=== PATIENT | male | born 1985 | race Caucasian/White ===

== ENCOUNTER 2019-06-21 15:01 | Emergency (ER) | payer OTHER ==
--- NOTE | 2019-06-21 17:54 | RADIOLOGY REPORT (SQ) ---
EXAM DESCRIPTION: CT SOFT TISSUE NECK WITH COMPLETED DATE/TIME: 06/21/2019 5:13 pm REASON FOR STUDY: diff swallowing, sensation of swelling in airway COMPARISON: None. TECHNIQUE: Post IV contrasted scanning from skull base through lung apices with review of bone, soft tissue and lung windows. Reconstructed coronal and sagittal MPR images reviewed. All images stored on PACS. All CT scanners at this facility use dose modulation, iterative reconstruction, and/or weight based d osing when appropriate to reduce radiation dose to as low as reasonably achievable (ALARA). [facility]: Dose Right [facility]: CareDose [facility]: Dose Right [facility]: Teradose 4D [facility]: CyberVision Text CONTRAST TYPE AND DOSE: contrast/concentration: Isovue 350.00 mg/ml; Total Contrast Delivered: 75.0 ml; Total Saline Delivered: 55.0 ml RENAL FUNCTION: Testing waived by the emergency room physician. RADIATION DOSE: CT Rad equipment meets quality standard of care and radiation dose reduction techniq ues were employed. CTDIvol: 16.1 mGy. DLP: 541 mGy-cm. . LIMITATIONS: None. FINDINGS: SKULL BASE: Intact. MAJOR SALIVARY GLANDS: No solid or cystic masses. No inflammatory changes. LYMPHADENOPATHY: No adenopathy. MUCOSAL MASSES OR ASYMMETRY: No mucosal masses or asymmetry. LARYNX/CORDS: No abnormal findings. VASCULAR STRUCTURES: The major vessels are patent. LUNG APICES: Clear. BONES: Intact. THYROID: Normal size. No masses. PARANASAL SINUSES: Clear. OTHER: No other significant finding. IMPRESSION: NO SIGNIFICANT FINDING IN THE SOFT TISSUES OF THE NECK. TECHNICAL DOCUMENTATION: JOB ID: [id number] Quality ID # [id number]: Final reports with documentation of one or more dose reduction techniques (e.g., Au tomated exposure control, adjustment of the mA and/or kV according to patient size, use of iterative reconstruction technique) 2010 [employer]- All Rights Reserved Reading location - IP/workstation name: [email or web address]
[2019-06-21] MEDS ORDERED: DEXAMETHASONE SOD PHOS INJ 10 MG/1 ML VIAL IM ONE (18:35)
[2019-06-21] MEDS ORDERED: KETOROLAC TROMETHAMINE 60 MG/2 ML SDV IM ONE (18:35)
--- NOTE | 2019-06-21 18:56 | ER Document Report ---
HPI - HPI Time Seen by Provider: 06/21/19 15:58 Pain Level: 1 Notes: Patient is an otherwise healthy 33-year-old male presenting with 2-week history of pain in his neck. Patient reports it feels like his airway is swollen and he states he has a hard time swallowing and a sensation of difficulty breathing. Patient states he has had strep throat in the past and states this does not feel the same. He denies any other symptoms current to include fever, nausea, vomit ing, cough, congestion. He has not taken any medications for symptoms. He states that last night he was only able to spit into a bag. At the time of my evaluation patient is alert, oriented, swallowing his own saliva and able to speak in complete sentences without difficulty. Past Medical History - General Information source: Patient - Social History Smoking Status: Never Smoker Family History: Reviewed & Not Pertinent - Past Medical History Cardiac Medical History: Reports: Hx Hypertension Vertical Provider Document - CONSTITUTIONAL Notes: PHYSICAL EXAMINATION: GENERAL: Well-appearing, well-nourished and in no acute distress. HEAD: Atraumatic, normocephalic. EYES: Pupils equal round and reactive to light, extraocular movements intact, sclera anicteric, conjunctiva are normal. ENT: Nares patent, oropharynx clear without exudates. Moist mucous membranes. NECK: Normal range of motion, supple without lymphadenopathy LUNGS: Breath sounds clear to auscultation bilaterally and equal. No wheezes rales or rhonchi. HEART: Regular rate and rhythm without murmurs ABDOMEN: Soft, nontender, nondistended abdomen. No guarding, no rebound. No m asses appreciated. Musculoskeletal: Normal range of motion, no pitting or edema. No cyanosis. NEUROLOGICAL: Cranial nerves grossly intact. Normal speech, normal gait. Normal sensory, motor exams PSYCH: Normal mood, normal affect. SKIN: Warm, Dry, normal turgor, no rashes or lesions noted. - INFECTION CONTROL TRAVEL OUTSIDE OF THE [place] IN LAST 30 DAYS: No COUNTRY TRAVELED TO/FROM: [place] Course - Re-evaluation Re-evalutation: Patient appears well, nontoxic and is speaking in full and complete sentences. He is airway appears patent, he is speaking in full sentences and able to swallow his saliva at this time. He does report significant pain in his airway he points to his trachea area. He states that it is incredibly difficult to swallow. I do not feel any palpable mass. Given that I am unable to visualize exactly where patient's complaint is I will proceed with a IV contrasted CT of the soft tissues of his neck to ensure that there is no airway obstruction or abscess that I am unable to visualize. Patient is agreeable to this. Soft Tissue Neck CT 06/21/19 16:22 IMPRESSION: NO SIGNIFICANT FINDING IN THE SOFT TISSUES OF THE NECK. Laboratory 06/21/19 16:55 Group A Strep Rapid NEGATIVE CT of the soft tissues of his neck was negative for any acute findings, rapid strep was also performed which was also negative. Patient was given a dose of Decadron and Toradol here in the emergency department for symptomatic relief. Patient given ED return precautions. The patient's emergency department workup and current diagnosis were explained to the patient and or family. Follow-up instructions were provided. Medications if prescribed were discussed. Instructions for when to return to the emergency department including specific worrisome symptoms were discussed with the patient and/or family. - Vital Signs Vital signs: Temp Pulse Resp BP Pulse Ox 98.5 F 76 18 144/89 H 96 06/21/19 15:11 06/21/19 15:11 06/21/19 15:11 06/21/19 15:11 06/21/19 15:11 Discharge - Discharge Clinical Impression: Sensation of swollen throat Condition: Stable Disposition: HOME, SELF-CARE Additional Instructions: The CT scan of your neck did not show any abnormalities. You were given a dose of Toradol and Decadron here in the emergency department the Decadron is a steroid that will last in her system for 3 days. This may help with some reduction of inflammation. In the meanwhile please drink plenty of fluids, alternate Tylenol and ibuprofen for your pain or discomfort. Follow-up with primary care, the information for the [facility] is on page 2 of yo ur discharge papers. Return to the emergency department with any new or worsening concerns. Referrals: [facility] [Primary Care Provider] - Follow up as needed
[2019-06-21 19:01] VITALS: BP 128/88
== END 2019-06-21 19:02 | disposition home or self-care (01) ==
LOC: ER 15:01
DX: R09.89 Other specified symptoms and signs involving the circulatory and respiratory systems (principal); I10 Essential (primary) hypertension
CPT/HCPCS: 99283; 96372; 87070; 87880; 70491; J1885; J1100